=== PATIENT | female | born 1985 | race Caucasian/White ===

== ENCOUNTER → 2021-05-02 | Day surgery (SDC) | payer OTHER ==
[~2021-05-02] MED LIST: AJOVY225 MG/1.5 INJ; HYDROXYZINE HCL25 MG PO; HYDROXYZINE PO; METHOCARBAMOL500 MG PO; MINIPRESS2 MG PO; MIRTAZAPINE PO; MIRTAZAPINE15 MG PO; NURTEC ODT75 MG PO; PERCOCET 5/325 T1 EA PO; PRAZOSIN HCL1 MG PO; PROZAC20 MG PO
[2021-05-02 07:30] LABS: HEMOGLOBIN 14.4 gm/dl (12.3-15.3); RED BLOOD COUNT 4.69 M/UL (4.00-5.10); WHITE BLOOD COUNT 5.8 K/UL (4.5-11.0)
[2021-05-02 08:05] LABS: BUN/CREATININE RATIO 13 (0-10)
== END | disposition home or self-care (01) ==
LOC: OR 06:57
PROVIDERS: Obstetrics & Gynecology
DX: N93.9 Abnormal uterine and vaginal bleeding, unspecified (principal); N94.6 Dysmenorrhea, unspecified; I10 Essential (primary) hypertension; M19.90 Unspecified osteoarthritis, unspecified site; F32.9 Major depressive disorder, single episode, unspecified; F41.9 Anxiety disorder, unspecified; G43.909 Migraine, unspecified, not intractable, without status migrainosus; F17.290 Nicotine dependence, other tobacco product, uncomplicated; Z88.6 Allergy status to analgesic agent; Z91.040 Latex allergy status; Z88.1 Allergy status to other antibiotic agents; Z79.899 Other long term (current) drug therapy
CPT/HCPCS: 36415; 80053; 84702; 85025; J1100; J2001; J2250; J2405; J2704; J2765; J3010; J7030; J7120